=== PATIENT | male | born 1985 | race Hispanic/Latino ===

== ENCOUNTER 2024-10-30 18:39 | Emergency (ER) | payer SELFPAY ==
[2024-10-30 18:55] VITALS: BP 148/108
[2024-10-30 19:18] LABS: Hematocrit 42.5 % (39.0-52.0); Hemoglobin 15.1 g/dL (13.0-18.0); Mean Corp Hgb Conc. 35.5 g/dL (33.0-37.0); Mean Corpuscular Volume 85.7 fL (80.0-94.0); Nucleated Red Blood Cells % 0 % (-); Platelet Count 243 10^3/uL (130-400); Red Cell Dist. Width 12.2 % (11.5-14.5)
[2024-10-30 19:36] LABS: ALT (SGPT) 29 U/L (0-50); AST (SGOT) 37 U/L (17-59); Albumin 4.7 g/dl (3.5-5.0); Alkaline Phosphatase 86 U/L (38-126); Blood Urea Nitrogen 12 mg/dl (9-20); Calcium 9.1 mg/dl (8.4-10.2); Carbon Dioxide 22 mmol/L (22-30); Chloride 106 mmol/L (98-107); Glucose 117 mg/dl (70-99); Lipase 102 U/L (23-300); Potassium 4.4 mmol/L (3.5-5.1); Sodium 137 mmol/L (135-145); Total Protein 8.3 g/dl (6.3-8.2); eGFR > 60.00
[2024-10-30 19:42] LABS: Troponin I < 0.012 ng/ml
[2024-10-30 21:46] VITALS: BMI 32.6
[2024-10-30 21:52] VITALS: BP 152/112
[2024-10-30 22:00] VITALS: BP 133/88
[2024-10-30] MEDS: PROTONIX IV 40 MG IV (22:31)
[2024-10-30] MEDS: CARAFATE SUSPENSION 1 GM PO (22:31)
[2024-10-31 00:47] VITALS: BP 134/98
[2024-10-31 01:01] VITALS: BP 130/95
--- NOTE | 2024-10-31 01:22 | ED.GENMED ---
History of Present Illness
General
Chief Complaint: Alcohol Problem
Source: patient
Exam Limitations: none
Time Seen by Provider: 10/30/24 21:55
Nursing documentation reviewed up to this point in time: agreed with
History of Present Illness
History of Present Illness:
Note:
CHIEF COMPLAINT(S)
Abdominal pain and alcohol use concerns.
HISTORY OF PRESENT ILLNESS
The patient is a 38-year-old male presenting with abdominal pain, primarily in the epigastric and the right upper quadrant, which worsened today. The patient reports occasional epigastric pain, exacerbated by not drinking alcohol and sometimes after
going to the gym. Additionally, there is discomfort in the back. The patient last consumed alcohol at 2:00 AM today, stating ingesting roughly two beers and some tequila over the past few days. He expresses a desire to quit drinking but is unable to
attend an inpatient facility due to work commitments. The patient also mentions sleep difficulties, describing episodes every night where he awakens suddenly with a sensation that something bad might happen.
SOCIAL DETERMINANTS AFFECTING HEALTH
The patient reports alcohol use, consuming beers and tequila over the past few days, with the last intake at 2:00 AM today. He mentions concerns about attending an inpatient facility due to work obligations.
REVIEW OF SYSTEMS
- Gastrointestinal: Reports abdominal pain, primarily in the epigastric and right upper quadrant.
- Neurological: Experiences episodes of sudden awakening at night, feeling like something adverse might occur.
- Social: Reports alcohol use including beers and tequila, with recent consumption as of 2:00 AM today.
PHYSICAL EXAM
General: Alert, no acute distress.
Skin: Warm, dry.
Head: Normocephalic, atraumatic.
Neck: Supple, trachea midline.
Eyes, ears, nose, mouth and throat: Oral mucosa moist.
Cardiovascular: Normal peripheral perfusion, no edema.
Respiratory: Respirations are non-labored.
Gastrointestinal: Abdomen nondistended.
Back: Normal range of motion, normal alignment.
Musculoskeletal: Normal range of motion, normal strength.
Neurological: Alert and oriented to person, place, time, and situation, no focal neurological deficit observed.
Psychiatric: Cooperative, appropriate mood & affect.
PLAN
- Perform laboratory tests to evaluate abdominal pain.
- Discuss options for addressing alcohol use with patient care team, including outpatient support resources due to work constraints.
DIFFERENTIAL DIAGNOSIS
The Differential Diagnosis includes, in no particular order and is not limited to:
1. Alcohol-induced gastritis
2. Peptic ulcer disease
3. Cholecystitis
4. Pancreatitis
5. Hepatitis
6. Gastroesophageal reflux disease (GERD)
7. Alcohol withdrawal syndrome
8. Gallstones
9. Non-alcoholic fatty liver disease
10. Anxiety-related disorders affecting sleep
CARE-UPDATE
10/31/24 - 02:54
The patient continues to engage with [facility] counseling sessions.
Disposition:
SUMMARY OF ENCOUNTER
The patient, a 38-year-old male, presented with concerns about his alcohol use and expressed a desire to quit drinking. He had previously participated in [facility] counseling sessions and was given intensive outpatient therapy support. Due to ongoing
work commitments, he was unable to attend an inpatient facility for alcohol treatment.
DISPOSITION
Discharge.
PLAN
The plan includes managing the patients alcohol use disorder on an outpatient basis, leveraging the support provided by [facility] and considering future sessions as necessary. Prescribing a short course of out-of-end medications for immediate relief
if required.
PATIENT EDUCATION AND COUNSELING
The patient was counseled about the importance of continuing outpatient therapy for alcohol use and provided resources for support.
FOLLOW-UP INSTRUCTIONS
The patient is advised to schedule follow-up visits with his primary care provider and to continue with outpatient therapy through [facility].
MEDICATION RECONCILIATION
A short prescription for an out-of-end medication was given. (Specific medication unclear).
MEDICAL DECISION MAKING
- Number and Complexity of Problems Addressed: Chronic conditions affecting care related to alcohol use disorder. Differential diagnoses considered include alcohol-induced gastritis, peptic ulcer disease, cholecystitis, pancreatitis, hepatitis,
gastroesophageal reflux disease (GERD), alcohol withdrawal syndrome, gallstones, non-alcoholic fatty liver disease, anxiety-related disorders affecting sleep.
- Data:
Category 1:
The patients previous involvement with [facility] counseling was reviewed.
- Care significantly affected by Social Determinants of Health: The patient�s ability to engage in inpatient alcohol treatment is affected by work commitments.
DIAGNOSIS
Alcohol use disorder (ICD-10: F10.20).
Phy Exam
Physical Exam
Physical Exam:
.
Scores
Withdrawal Assessment of Alcohol
Withdrawal Assessment Completed?: Not applicable
Course
Orders/Labs/Results
Orders:
Orders
10/30/24 18:58
EKG [Electrocardiogram (*1)] Urgent
Reason for Study: Abdominal Pain
10/30/24 18:59
EKG- Treatment ONCE
10/30/24 19:10
Alcohol Urgent
Complete Blood Count/With Diff Urgent
Comprehensive Metabolic Panel Urgent
Lipase Urgent
Troponin I Urgent
10/30/24 22:27
Pantoprazole [Protonix IV] 40 mg IV NOW STA
Sucralfate Suspension [Carafate Suspension] 1 gm PO NOW STA
US Abdomen Complete/Upper Urgent
Comment:
Reason For Exam: upper abd pain
10/31/24 01:47
Lorazepam [Ativan] 1 mg PO NOW STA
10/31/24 03:59
Lorazepam [Ativan] 1 mg .ROUTE .STK-MED ONE
10/31/24 04:01
Lorazepam [Ativan] 1 mg PO NOW STA
Abnormal Lab Results
10/30/24
19:10
Glucose 117 H mg/dl
(70-99)
Total Protein 8.3 H g/dl
(6.3-8.2)
10/30/24 19:10
10/30/24 19:10
Vital Signs
Initial and Last Documented VS:
Initial Vital Signs
Temp Pulse Resp BP Pulse Ox
99.2 F 78 18 148/108 99
10/30/24 18:55 10/30/24 18:55 10/30/24 18:55 10/30/24 18:55 10/30/24 18:55
Last Documented Vital Signs
Temp Pulse Resp BP Pulse Ox
98.4 F 77 18 135/102 99
10/31/24 00:50 10/31/24 03:45 10/31/24 03:45 10/31/24 03:47 10/31/24 01:22
*Pulse Oximetry
SaO2: 99
Oxygen Mode of Delivery: Room air
Patient hypoxic: no
*Critical Care Note
Total Time (30-74mins, 75-104mins- exclusive of procedures): Not Applicable
Update Note
Update Note:
NAME: WILLIAM CASTILLO
DATE OF EXAM: 10/30/2024
Patient No: [id number]
Physician: ISRAEL
Date of : 1985
Past Medical History (entered by Technologist):
Reason For Exam (entered by Technologist):
Other Notes (entered by Technologist):
Additional Information (per [facility]iologist):
drink 15 beers a day
Ultrasound abdomen
IMPRESSION:
Hyperechoic fatty liver with sparing near the gallbladder fossa.
Normal gallbladder. No gallstones or sludge. Negative Morillo sign. No biliary ductal dilatation.
Kidneys without hydronephrosis.
Nonenlarged spleen.
Pancreas not well seen.
No free fluid
The results were faxed/finalized only at 1:00 AM ET. If you would like to discuss this case directly, please call [phone] (extension [phone]). If you can't reach me at this number, do not leave a voicemail. Please call [phone] ext [phone] and ask
for the next available Radiologist.
Stas Pena MD
This report has been electronically signed and verified by the Radiologist whose name is printed above.
ED Attending Note
-
Portions of this chart may have been created with voice recognition software.� Occasional wrong word or��sound alike� substitutions may have occurred due to the inherent limitations of voice recognition software.
Discharge Plan
Departure
Patient Disposition: Home (Routine Discharge)
Date of Disposition: 10/31/24
Time of Disposition: 03:31
Patient with high blood pressure during this ER visit?: Yes
Condition: Good
Discharge Problem:
Alcohol abuse
Instructions: Alcohol Use Disorder (DC), BLOOD PRESSURE
Prescriptions:
New
lorazepam [Ativan] 1 mg tablet
1 mg PO BID PRN (Reason: alcohol withdrawal) Qty: 7 0RF
Referrals:
[facility] [Outside]
NONE,* [Family Provider, Internal Medicine]
Activity Restrictions/Additional Instructions:
Thank You for choosing [facility].
It was a pleasure meeting you and taking part in your care. We hope for your continued healing and wellness.
Please read discharge instructions in their entirety. However, they are for general education and may not describe your exact diagnosis at discharge. Information on your ER visit and medical conditions were discussed with you along with appropriate
follow up information...
If indicated, please take your medications as instructed and indicated on discharge paperwork.
Please schedule a follow up appointment as directed. Call to schedule an appointment
Please return to the emergency department with ANY change in, persisting, or worsening of symptoms. If any of your symptoms do not improve, or persist, or become more severe within 6-12 hours, please return to the emergency department for further
care.
Please return to the emergency department if you develop a headache, neck pain/stiffness, fever greater than 100.4F, chest pain, shortness of breath, persistent nausea, vomiting, slurred speech, difficulty walking, numbness/tingling, weakness, signs
of infection or any other symptoms that are worrisome to you.
If you have any questions or concerns please do not hesitate to call the Hospital at or E-mail me directly at [email or web address]
Interventions
Interventions:
*Risk Screen - Suicide Last Done: 10/30/24 18:55
*General Assessment Last Done: 10/30/24 18:55
*Neglect/Abuse Screening Last Done: 10/30/24 18:55
*ED- Fall Risk Assessment Last Done: 10/30/24 21:46
*ED COVID-19 Vaccine History Last Done: 10/30/24 18:55
*Nursing Disposition Last Done: 10/31/24 03:45
ED- Neurological Assessment Last Done: 10/31/24 00:45
ED-Psychological Assessment Last Done: 10/30/24 21:46
Discharge Date and Time
Discharge Date/Time: 10/31/24 03:45
Print Language: SUDANESE
[2024-10-31] MEDS: ATIVAN 1 MG PO ×2 (01:57→04:02)
[2024-10-31 02:00] VITALS: BP 141/94
[2024-10-31 03:47] VITALS: BP 135/102
== END 2024-10-31 03:45 | disposition home or self-care (01) ==
LOC: EMR 18:39
PROVIDERS: Emergency Medicine; EMERGENCY PHYSICIAN Student in an Organized Health Care Education/Training Program
DX: F10.10 Alcohol abuse, uncomplicated (principal)
CPT/HCPCS: 99284; 96374; 76700; 80053; 82077; 83690; 84484; 85025; 93005